=== PATIENT | male | born 1980 | race Caucasian/White ===

== ENCOUNTER → 2017-09-19 | Outpatient (CLI) | payer OTHER ==
[~2017-09-19] MED LIST: Augmentin 875-1 EACH PO
[2017-09-20 14:33] LABS: Source Urine
== END | disposition home or self-care (01) ==
LOC: LAB EV 17:00
PROVIDERS: Physician Assistant Surgical
DX: Z72.51 High risk heterosexual behavior (principal)
CPT/HCPCS: 87491; 87591; 87661